=== PATIENT | male | born 1950 | race Caucasian/White ===

== ENCOUNTER 2021-11-25 18:07 | Emergency (ER) | payer BC ==
[~2021-11-25] VITALS: Ht 180.3 cm; Wt 100.0 kg
[2021-11-25] MEDS ORDERED: MORPHINE 2 MG/ML 1ML VIAL IV ONE (18:40)
[2021-11-25] MEDS ORDERED: ONDANSETRON 4MG 2ML VIAL IV ONE (18:40)
[2021-11-25] MEDS ORDERED: AMIODARONE HCL 150 MG in IV 1 EA IV STA (18:46)
[2021-11-25 18:48] LABS: BASO # 0.1 10^3/uL (0.0-0.2); BASO % 0.6 % (0.0-1.0); EOS # 0.2 10^3/uL (0.0-0.5); EOS % 1.7 % (0.0-3.0); LYMPH # 2.3 10^3/uL (1.5-5.0); LYMPH % 25.4 % (24.0-44.0); MEAN CORPUSCULAR HEMOGLOBIN 32.8 pg (27.0-33.0); MEAN CORPUSCULAR HGB CONC 33.3 g/dl (32.0-36.5); MEAN CORPUSCULAR VOLUME 98.5 fl (80.0-96.0); MONO # 0.6 10^3/uL (0.0-0.8); MONO % 6.6 % (2.0-8.0); NEUTROPHILS # 5.8 10^3/uL (1.5-8.5); NEUTROPHILS % 65.2 % (36.0-66.0); PLATELET COUNT, AUTOMATED 181 10^3/uL (150-450); RED BLOOD COUNT 4.57 10^6/uL (4.30-6.10); WHITE BLOOD COUNT 8.9 10^3/uL (4.0-10.0)
[2021-11-25] MEDS ORDERED: AMIODARONE HCL 360 MG in IV 1 EA IV SCH (19:00)
[2021-11-25 19:02] LABS: INR 1.19; PROTHROMBIN TIME 15.5 SECONDS (12.7-14.5)
[2021-11-25 19:19] LABS: CK-MB VALUE MASS 1.9 NG/ML (<3.6); MB/CK RELATIVE INDEX 1.74 (< OR =4)
[2021-11-25 19:25] LABS: ALBUMIN 3.7 GM/DL (3.2-5.2); ALT/SGPT 28 U/L (12-78); BILIRUBIN,DIRECT 0.3 MG/DL (0.0-0.2); BILIRUBIN,TOTAL 1.2 MG/DL (0.2-1.0); BLOOD UREA NITROGEN 11 MG/DL (7-18); CARBON DIOXIDE LEVEL 23 MEQ/L (21-32); CHLORIDE LEVEL 109 MEQ/L (98-107); CREATININE FOR GFR 1.16 MG/DL (0.70-1.30); GLOMERULAR FILTRATION RATE > 60.0 (>49); GLUCOSE, FASTING 106 MG/DL (70-100); LIPASE 114 U/L (73-393); MAGNESIUM LEVEL 2.1 MG/DL (1.8-2.4); NT-PRO BNP 2290 PG/ML (<125); SODIUM LEVEL 141 MEQ/L (136-145); TOTAL PROTEIN 6.6 GM/DL (6.4-8.2)
[2021-11-25 20:06] LABS: RSV AMPLIFICATION NEGATIVE (NEGATIVE)
[2021-11-25 20:30] VITALS: BP 125/86
[2021-11-26] MEDS ORDERED: AMIODARONE HCL 360 MG in IV 1 EA IV SCH (01:00)
== END 2021-11-25 20:33 | disposition short-term general hospital (02) ==
LOC: EDBD 18:07 → M ED 19:33
DX: I49.2 Junctional premature depolarization (principal); I51.9 Heart disease, unspecified; E78.5 Hyperlipidemia, unspecified; I10 Essential (primary) hypertension; Z95.0 Presence of cardiac pacemaker; Z79.811 Long term (current) use of aromatase inhibitors; Z79.01 Long term (current) use of anticoagulants; Z87.891 Personal history of nicotine dependence
CPT/HCPCS: 71045; 80047; 80048; 80076; 82550; 82553; 83690; 83735; 83880; 84439; 84443; 84484; 85025; 85610; 87631; 93005; 93041; 94760; 96374; 96375; 99285; J0282; J2270; J2405